=== PATIENT | male | born 1985 | race African-American/Black ===

== ENCOUNTER → 2024-01-14 | Outpatient (REF) | payer OTHER ==
[2024-01-14 12:56] LABS: SEMEN APPEARANCE OPAQUE (OPAQUE); SEMEN VISCOSITY LIQUID (LIQUID); SEMEN VOLUME 4.5 ml (2.0-5.0)
[2024-01-14 12:57] LABS: SEMEN pH 8.5 (7.0-8.0); SPERM CONCENTRATION 88.1 M/ml (>=15.0); WBC CONCENTRATION <=1 M/ml (<=1 M/ml)
== END ==
LOC: M LAB REF 12:52
PROVIDERS: ATTEND Physician Assistant
DX: N46.9 Male infertility, unspecified (principal)

== ENCOUNTER → 2024-01-21 | Outpatient (REF) | payer OTHER ==
[2024-01-21 09:06] LABS: SEMEN APPEARANCE OPAQUE (OPAQUE); SEMEN VISCOSITY LIQUID (LIQUID); SEMEN VOLUME 4.4 ml (2.0-5.0); SEMEN pH 8.5 (7.0-8.0); WBC CONCENTRATION <=1 M/ml (<=1 M/ml)
== END ==
LOC: M LAB REF 08:35
PROVIDERS: ATTEND Physician Assistant
DX: N46.9 Male infertility, unspecified (principal)

== ENCOUNTER → 2024-01-28 | Outpatient (REF) | payer OTHER ==
[2024-01-28 09:03] LABS: SEMEN APPEARANCE OPAQUE (OPAQUE); SEMEN VISCOSITY LIQUID (LIQUID); SEMEN VOLUME 6.5 ml (2.0-5.0); WBC CONCENTRATION <=1 M/ml (<=1 M/ml)
== END ==
LOC: M LAB REF 08:48
PROVIDERS: ATTEND Physician Assistant
DX: N46.9 Male infertility, unspecified (principal)

== ENCOUNTER 2024-07-29 03:22 | Emergency (ER) | payer OTHER ==
[~2024-07-29] VITALS: Ht 170.2 cm; Wt 92.0 kg
[2024-07-29] MEDS ORDERED: IBUP1TAB7 PO (03:33)
[2024-07-29 06:20] VITALS: BP 149/87; TEMP 97; O2SAT 99
[2024-07-29] MEDS ORDERED: PRED10TA2 PO (06:48)
== END 2024-07-29 07:03 | disposition home or self-care (01) ==
LOC: M ED 03:22
DX: M72.2 Plantar fascial fibromatosis (principal); Y92.89 Other specified places as the place of occurrence of the external cause; Y93.01 Activity, walking, marching and hiking; Y99.1 Military activity; Z79.1 Long term (current) use of non-steroidal anti-inflammatories (NSAID); Z79.52 Long term (current) use of systemic steroids

== ENCOUNTER → 2024-10-07 | Outpatient (REF) | payer OTHER ==
[~2024-10-07] MED LIST: IBUP1TAB7 PO; PRED10TA2 PO
[2024-10-07 10:29] LABS: SEMEN APPEARANCE OPAQUE (OPAQUE); SEMEN VISCOSITY LIQUID (LIQUID); SEMEN VOLUME 8.0 ml (2.0-5.0); SPERM CONCENTRATION 36.5 M/ml (>=15.0); WBC CONCENTRATION <=1 M/ml (<=1 M/ml)
[2024-10-07 10:30] LABS: TOTAL PROGRESSIVE SPERM 108.2 M/Ejac.
== END ==
LOC: M LAB REF 10:18
DX: N46.9 Male infertility, unspecified (principal)

== ENCOUNTER → 2024-10-14 | Outpatient (REF) | payer OTHER ==
[2024-10-14 10:08] LABS: SEMEN APPEARANCE OPAQUE (OPAQUE); SEMEN VISCOSITY LIQUID (LIQUID); SEMEN VOLUME 2.6 ml (2.0-5.0); WBC CONCENTRATION <=1 M/ml (<=1 M/ml)
[2024-10-14 10:09] LABS: SPERM CONCENTRATION 15.0 M/ml (>=15.0); TOTAL PROGRESSIVE SPERM 7.6 M/Ejac.
== END ==
LOC: M LAB REF 09:04
DX: Z31.41 Encounter for fertility testing (principal)

== ENCOUNTER → 2024-10-21 | Outpatient (REF) | payer OTHER ==
[2024-10-21 09:29] LABS: SEMEN APPEARANCE OPAQUE (OPAQUE); SEMEN VISCOSITY LIQUID (LIQUID); SEMEN VOLUME 6.0 ml (2.0-5.0); WBC CONCENTRATION <=1 M/ml (<=1 M/ml)
[2024-10-21 09:31] LABS: SPERM CONCENTRATION 44.5 M/ml (>=15.0); TOTAL PROGRESSIVE SPERM 119.1 M/Ejac.
== END ==
LOC: M LAB REF 09:24
DX: Z31.41 Encounter for fertility testing (principal)